=== PATIENT | male | born 1970 | race African-American/Black ===

== ENCOUNTER 2017-11-20 08:40 | Emergency (ER) | payer SELFPAY ==
[2017-11-20] MEDS: NEOMY/BACITR/POLYMYXIN OINT PACKET. TP (09:16)
== END 2017-11-20 09:30 | disposition home or self-care (01) ==
LOC: ER 08:40
DX: S51.851A Open bite of right forearm, initial encounter (principal); S61.451A Open bite of right hand, initial encounter; G43.909 Migraine, unspecified, not intractable, without status migrainosus; Z72.0 Tobacco use; W54.0XXA Bitten by dog, initial encounter; Y93.89 Activity, other specified; Y92.89 Other specified places as the place of occurrence of the external cause; Y99.8 Other external cause status
CPT/HCPCS: 99283

== ENCOUNTER 2018-06-24 16:32 | Emergency (ER) | payer SELFPAY ==
[~2018-06-24] VITALS: Ht 175.3 cm; Wt 95.3 kg
[~2018-06-24 16:32] MED LIST: AMOX1TAB61 PO
[2018-06-24] MEDS ORDERED: HYDROcodone/APAP 5/325MG 1 TAB TABLET PO ONE (17:00)
[2018-06-24] MEDS ORDERED: NEOMY/BACITR/POLYMYXIN OINT PACKET. TP ONE (17:00)
[2018-06-24] MEDS ORDERED: AMOXICILLIN/K CLAV 875/125MG TABLET. PO ONE (17:00)
--- NOTE | 2018-06-24 17:18 | RAD ---
FOREARM RIGHT, HAND RIGHT 3V Clinical Indication: Dog bite distal radius Comparison: None. Findings: There is subcutaneous edema and soft tissue injury lateral and dorsal to the distal half of the radius. No radiopaque foreign body is seen. No acute fracture is seen. No obvious deformity of the elbow. There is negative ulnar variance. There is no acute fracture or dislocation of the hand. The mineralization is normal. No soft tissue swelling of the hand. The fifth PIP joint is in flexion. IMPRESSION: No acute fracture. Electronically signed by: Rocky Bonilla MD (06/24/2018 5:14 PM) [facility]
[2018-06-24 17:30] VITALS: BP 125/67
[2018-06-24] MEDS ORDERED: AMOX1TAB61 PO (17:51)
[2018-06-24] MEDS ORDERED: HYDR-3164 PO (17:51)
--- NOTE | 2018-06-24 17:51 | PHYS DOC ---
Past Medical History Past Medical History: Asthma, GERD, Migraines Past Surgical History: Other Additional Past Surgical Histo: HERNIA, NECK SURGERY, RT HAND SURGERY Additional Information: CHEWS TOBACCO Alcohol Use: Occasionally Drug Use: None Adult General Chief Complaint Chief Complaint: ANIMAL BITE HPI HPI Patient is a 47 year old male who presents to be evaluated for dog bites to the right forearm and left lower abdomen. Patient got bit by his own dog's. Patient states the dogs are not up-to-date with their shots but he is up-to- date with his tetanus. Review of Systems Review of Systems Constitutional: Denies fever or chills [] GI: Denies abdominal pain, nausea, vomiting, bloody stools or diarrhea [] : Denies dysuria or hematuria [] Musculoskeletal: Denies back pain or joint pain [] Integument: dog bites to the right forearm and left lower abdomen Neurologic: Denies headache, focal weakness or sensory changes [] All other systems were reviewed and found to be within normal limits, except as documented in this note. Current Medications Current Medications Current Medications Medications (Trade) Dose Ordered Sig/[place] Start Time Stop Time Status Last Admin Dose Admin Acetaminophen/ Hydrocodone Bitart (Lortab 5/325) 1 tab 1X ONCE 06/24/18 17:00 06/24/18 17:01 DC 06/24/18 17:22 1 TAB Amoxicillin/ Clavulanate Potassium (Augmentin 875/ 125mg) 1 tab 1X ONCE 06/24/18 17:00 06/24/18 17:01 DC 06/24/18 17:22 1 TAB Neomycin/ Polymyxin/ Bacitracin (Triple Antibiotic Ointment) 1 pkt 1X ONCE 06/24/18 17:00 06/24/18 17:01 DC 06/24/18 17:22 1 PKT Allergies Allergies Allergies Coded Allergies Type Severity Reaction Last Updated Verified No Known Drug Allergies 11/20/17 No Physical Exam Physical Exam Constitutional: Well developed, well nourished, no acute distress, non-toxic appearance. [] Abdomen:Bowel sounds normal, soft, no tenderness, no masses, no pulsatile masses. [] Skin: Left lower abdomen with a 3 x 2 cm bruising consistent with a dog bite. Right index finger ventral aspect proximal end with a 1.5 puncture wound consistent with dog bite, right proximal forearm with another dog bite approximately 3 x 2 cm, the skin is missing to this area. Right medial forearm with another dog bite approximately 4.5 x 1 cm. There is no obvious tendon involvement in any of these bites. Patient has full range of motion to the right upper extremity. +2 right radial pulse. Cap refill less than 2 seconds the right fingers. Adequate radial, medial, ulnar sensation to the right upper extremity. Back: No tenderness, no CVA tenderness. [] Extremities: No tenderness, no cyanosis, no clubbing, ROM intact, no edema. [] Neurologic: Alert and oriented X 3, normal motor function, normal sensory function, no focal deficits noted. [] Psychologic: Affect normal, judgement normal, mood normal. [] Current Patient Data Vital Signs Vital Signs Date Time Temp Pulse Resp B/P (MAP) Pulse Ox O2 Delivery O2 Flow Rate FiO2 06/24/18 17:22 16 98 Room Air 06/24/18 16:35 98.2 68 88/57 (67) 98.2 EKG EKG [] Radiology/Procedures Radiology/Procedures [] Course & Med Decision Making Course & Med Decision Making Pertinent Labs and Imaging studies reviewed. (See chart for details) This is a 47-year-old male patient presented to the ED today with dog bites to the left lower abdomen as well as right forearm. Right forearm and right hand x- rays interpreted by radiologist are negative for any acute findings. The bites were cleaned thoroughly in the emergency room. Neosporin applied to the area, area was covered with nonstick dressing. Patient started on Augmentin and sent home with the same. Wound care instructions and return precautions provided. Patient's tetanus is up-to-date. Follow-up with primary care doctor in one week. Patient instructed to return to the ED at any point wound condition worsens. Dragon Disclaimer Dragon Disclaimer This electronic medical record was generated, in whole or in part, using a voice recognition dictation system. Departure Departure Impression: Primary Impression: Dog bite of right forearm Additional Impressions: Dog bite of right hand Open wound of abdominal wall due to dog bite Disposition: 01 HOME, SELF-CARE Condition: STABLE Referrals: NON,STAFF (PCP) Follow-up with your own doctor in 1-2 weeks Patient Instructions: Animal Bite, [id number] Additional Instructions: You were evaluated in the emergency room for dog bites. Complete the Augmentin prescribed. You can wash the affected areas with soap and water, apply Neosporin to them. Monitor the areas for any worsening condition and return to the emergency room. Take the prescribed pain medicine as needed. Follow-up with your own doctor in 1-2 weeks. Scripts Hydrocodone/Apap 5-325 (NORCO 5-325 TABLET) 1 Each Tablet 1 TAB PO Q6HRS, #20 TAB Prov: YUVAL SAGASTUME PELLETIZER OPERATOR 06/24/18 Amoxicillin/Potassium Clav (AUGMENTIN 875-125 TABLET) 1 Each Tablet 1 TAB PO BID, #20 TAB Prov: YUVAL SAGASTUME PELLETIZER OPERATOR 06/24/18 Problem Qualifiers Primary Impression: Dog bite of right forearm Encounter type: initial encounter Qualified Codes: S51.851A - Open bite of right forearm, initial encounter; W54.0XXA - Bitten by dog, initial encounter Additional Impressions: Dog bite of right hand Encounter type: initial encounter Qualified Codes: S61.451A - Open bite of right hand, initial encounter; W54.0XXA - Bitten by dog, initial encounter YUVAL SAGASTUME APRN Jun 24, 2018 17:51
== END 2018-06-24 18:10 | disposition home or self-care (01) ==
LOC: ER 16:32
DX: S51.851A Open bite of right forearm, initial encounter (principal); S61.451A Open bite of right hand, initial encounter; S31.154A Open bite of abdominal wall, left lower quadrant without penetration into peritoneal cavity, initial encounter; J45.909 Unspecified asthma, uncomplicated; G43.909 Migraine, unspecified, not intractable, without status migrainosus; K21.9 Gastro-esophageal reflux disease without esophagitis; Z72.0 Tobacco use; W54.0XXA Bitten by dog, initial encounter; Y93.89 Activity, other specified; Y92.89 Other specified places as the place of occurrence of the external cause; Y99.8 Other external cause status
CPT/HCPCS: 73090; 73130; 99284